=== PATIENT | female | born 1950 | race Caucasian/White ===

== ENCOUNTER → 2020-08-02 10:01 | Outpatient (BNVA) | payer MEDICARE, SELFPAY | PROVIDERS: PCP Internal Medicine; Visit Provider Hospitalist | DX: J45.909 Unspecified asthma, uncomplicated (principal); G47.33 Obstructive sleep apnea (adult) (pediatric); Z79.899 Other long term (current) drug therapy | CPT/HCPCS: 99214 ==

== ENCOUNTER → 2021-02-15 09:17 | Outpatient (BNVA) | payer MEDICARE, SELFPAY | PROVIDERS: PCP Internal Medicine; Visit Provider Hospitalist | DX: J45.40 Moderate persistent asthma, uncomplicated (principal); J31.0 Chronic rhinitis; K21.9 Gastro-esophageal reflux disease without esophagitis | CPT/HCPCS: 99212 ==

== ENCOUNTER 2021-03-10 07:12 | Day surgery (SDC) | payer MEDICARE, SELFPAY ==
--- NOTE | 2021-03-08 12:16 | HO.ANESPROP2 ---
Documented by User: Inga Pearson 03/08/21 12:16 HPI - Anesthesia Eval Consult details Narrative: 70yo F for Colonoscopy PMFSH Active Problems Active Problems: All Active Problems (Updated 03/06/21 @ 13:04 by Haley Wilson) GERD (gastroesophageal reflux disease) (Acute) Chronic rhinitis (Acute) Asthma (Acute) Past Medical History Medical History Asthma Chronic rhinitis GERD (gastroesophageal reflux disease) Hiatal hernia Hypercholesterolemia Surgical History Surgical History History of esophagogastroduodenoscopy (EGD) History of surgery on left wrist Hx of colonoscopy Social History Social History (Updated 02/15/21 @ 09:31 by Jerri Sosa MA) Patient Tobacco Use Status: Former Tobacco user Years Smoked: 10 years Use of substances other than those prescribed or required for medical reasons: No Are you DNR?: No Advance Directives: No Advance Directives Information Provided: Yes Meds Allergies Allergy/AdvReac Type Severity Reaction Status Date / Time Penicillins Allergy Mild Rash Verified 03/10/21 07:28 Home Medications Medication Instructions Recorded Confirmed Last Taken Type atorvastatin 20 mg tablet 20 mg PO DAILY 07/16/20 03/06/21 Unknown History albuterol sulfate 90 mcg/actuation 2 puff INHALATION Q6H PRN 08/02/20 03/06/21 Unknown History aerosol inhaler ascorbic acid (vitamin C) [Vitamin 500 mg PO DAILY 03/06/21 03/06/21 Unknown History C] cholecalciferol (vitamin D3) 25 mcg PO DAILY 03/06/21 03/06/21 Unknown History [Vitamin D3] docusate sodium 100 mg PO BID 03/06/21 03/06/21 Unknown History fluticasone propionate 1 spray INTRANASAL BID 03/06/21 03/06/21 03/10/21 06:15 History Exam Exam Date and Time: March 08, 2021 1216 Assessment and Plan Assessment Anesthesia Assessment: Chart Reviewed Documented by User: Elisabeth Anti 03/10/21 08:38 PMFSH Past Medical History Medical History Asthma Chronic rhinitis GERD (gastroesophageal reflux disease) Hiatal hernia Hypercholesterolemia Surgical History Surgical History History of esophagogastroduodenoscopy (EGD) History of surgery on left wrist Hx of colonoscopy Social History Social History (Updated 02/15/21 @ 09:31 by Jerri Sosa MA) Patient Tobacco Use Status: Former Tobacco user Years Smoked: 10 years Use of substances other than those prescribed or required for medical reasons: No Are you DNR?: No Advance Directives: No Advance Directives Information Provided: Yes Meds Allergies Allergy/AdvReac Type Severity Reaction Status Date / Time Penicillins Allergy Mild Rash Verified 03/10/21 07:28 Home Medications Medication Instructions Recorded Confirmed Last Taken Type atorvastatin 20 mg tablet 20 mg PO DAILY 07/16/20 03/06/21 Unknown History albuterol sulfate 90 mcg/actuation 2 puff INHALATION Q6H PRN 08/02/20 03/06/21 Unknown History aerosol inhaler ascorbic acid (vitamin C) [Vitamin 500 mg PO DAILY 03/06/21 03/06/21 Unknown History C] cholecalciferol (vitamin D3) 25 mcg PO DAILY 03/06/21 03/06/21 Unknown History [Vitamin D3] docusate sodium 100 mg PO BID 03/06/21 03/06/21 Unknown History fluticasone propionate 1 spray INTRANASAL BID 03/06/21 03/06/21 03/10/21 06:15 History Exam Airway Mallampati Class: II TM Dist: >3cm Neck ROM: Full Loose/Missing/Broken Teeth: No Heart: RRR Lungs: CTA Assessment and Plan Assessment Anesthesia Assessment: Anesthesia Plan Discussed and Chart Reviewed Final Anesthetic Review NPO: Yes ASA Class: II Final Preanesthetic Review: Meds/Allgs Chart Reviewed, Consent Obtained/Reviewed and Anes Risks/Benef Reviewed Patient Risk: Low Procedure Risk: Low Anesthetic Plan Anesthetic Plan: MAC: Disposition: Standard PACU
[2021-03-10 06:18] VITALS: BMI 33.3
[2021-03-10 07:38] VITALS: BP 134/77; PULSE 73; RESP 18; TEMP 36.9; O2SAT 98
[2021-03-10] MEDS: Lactated Ringers 1,000 ML 100 ML IVCONT (07:51)
[2021-03-10 09:18] VITALS: BP 111/74; PULSE 70; RESP 18; TEMP 36.2; O2SAT 98
--- NOTE | 2021-03-10 09:21 | PM.OP ---
Brief Operative Note Date of Service: 03/10/21 Pre-op diagnosis: Screening Post-op diagnosis: other (Diverticulosis) Procedure: Colonoscopy to the cecum Surgeon: Catalino Jiménez Anesthesia: MAC Was an Environment Coordinator used for this Procedure?: No Estimated blood loss (mL): 0 Pathology: none sent Condition: stable Disposition: PACU
[2021-03-10 09:33] VITALS: BP 130/62; PULSE 58; RESP 16; TEMP 36.2; O2SAT 98
--- NOTE | 2021-03-10 11:11 | OP_ITS ---
SURGEON: Catalino Jiménez MD INDICATIONS: The patient presents for evaluation of colorectal cancer screening. Full consent has been obtained from her for this, including risks of bleeding and perforation. PREOPERATIVE DIAGNOSIS: Colorectal cancer screening. POSTOPERATIVE DIAGNOSIS: PROCEDURE PERFORMED: Colonoscopy to the cecum. ESTIMATED BLOOD LOSS: COMPLICATIONS: ANESTHESIA: Monitored anesthesia care. ASSISTANTS: SPECIMENS: POSTOPERATIVE DIAGNOSES: Colorectal cancer screening, sigmoid diverticulosis, and internal hemorrhoids. DESCRIPTION OF PROCEDURE: The patient was placed in the left lateral decubitus position. The digital rectal exam revealed no abnormalities. The Olympus video pediatric colonoscope was entered into the rectum and advanced easily to the cecum. Once in the cecum, I did identify normal-appearing cecal pouch with appendiceal orifice and a normal-appearing ileocecal valve. The entire cecum was well visualized and appeared normal. There was transillumination of light deep in the right lower quadrant. The scope was slowly withdrawn assessing all mucosal surfaces carefully. Preparation was excellent. I did not visualize any sign of polyps, colitis, nor angiodysplasias. There was a moderate amount of sigmoid diverticulosis. In the rectum, scope was retroflexed visualizing small internal hemorrhoids, but no other pathology. The rectal mucosa appeared normal. The scope was straightened out and withdrawn from the patient. She tolerated the procedure well and was returned to the recovery area in stable condition. IMPRESSION: 1. Sigmoid diverticulosis. 2. Internal hemorrhoids. PLAN: Given today's negative exam, negative family history of colon cancer, and a negative colonoscopy in 2009, I do not think she will need any further screening colonoscopies at this point since she would be 80-year-old at the time of the next screening colonoscopy. As such, she will see me on a p.r.n. basis. MD RAMA Gonzalez/COLIN / [id number]
== END 2021-03-10 09:53 | disposition home or self-care (01) ==
PROVIDERS: PCP Internal Medicine; Visit Provider Internal Medicine
PROC: 0DJD8ZZ Inspection of Lower Intestinal Tract, Via Natural or Artificial Opening Endoscopic (ICD-10-PCS; CPT 45378; principal; 2021-03-10 08:20)
DX: Z12.11 Encounter for screening for malignant neoplasm of colon (principal); K57.30 Diverticulosis of large intestine without perforation or abscess without bleeding; K64.8 Other hemorrhoids; K21.9 Gastro-esophageal reflux disease without esophagitis; J45.909 Unspecified asthma, uncomplicated; E78.00 Pure hypercholesterolemia, unspecified; Z79.899 Other long term (current) drug therapy; Z79.51 Long term (current) use of inhaled steroids; Z88.0 Allergy status to penicillin; Z87.891 Personal history of nicotine dependence
CPT/HCPCS: G0121

== ENCOUNTER 2021-08-01 09:59 | Outpatient (REF) | payer MEDICARE, SELFPAY ==
--- NOTE | 2021-08-01 17:43 | PFT_ITS ---
INDICATION: COPD. SPIROMETRY: The FEV1 to FVC of 74% with an FEV1 of 1.92 L, which is 82% predicted, FVC of 2.58 L, which is 82% predicted. No significant response to bronchodilators noted. Of note, there is some evidence of small airways disease. Maximum voluntary ventilation 107% predicted. LUNG VOLUMES: Total lung capacity 97% predicted with an expiratory reserve volume of 35% predicted, likely secondary to an elevated BMI. DIFFUSION CAPACITY: DLCO 72% predicted. COMPARISON: None available. INTERPRETATION: No definitive obstructive nor restrictive ventilatory defects identified. No significant response to bronchodilators noted. Again, there is evidence of small airways disease consistent with the diagnosis of asthma. The patient has normal lung volumes except for decrease in the expiratory reserve volume secondary to an elevated BMI. There is also mild diffusion impairment. Clinical correlation warranted. MD CHARISMA Echeverria/MODL / [id number]
== END 2021-08-01 10:00 | disposition home or self-care (01) ==
LOC: HO.RESP 09:59
PROVIDERS: PCP Internal Medicine; Visit Provider Hospitalist
DX: J31.0 Chronic rhinitis (principal); J45.40 Moderate persistent asthma, uncomplicated
CPT/HCPCS: 94060; 94727; 94729

== ENCOUNTER → 2021-08-17 09:22 | Outpatient (BNVA) | payer MEDICARE, SELFPAY | PROVIDERS: PCP Internal Medicine; Visit Provider Hospitalist | DX: J45.40 Moderate persistent asthma, uncomplicated (principal); J31.0 Chronic rhinitis; K21.9 Gastro-esophageal reflux disease without esophagitis | CPT/HCPCS: 99212 ==

== ENCOUNTER → 2022-02-14 09:56 | Outpatient (BNVA) | payer MEDICARE, SELFPAY | PROVIDERS: PCP Internal Medicine; Visit Provider Hospitalist | DX: J45.40 Moderate persistent asthma, uncomplicated (principal); J31.0 Chronic rhinitis; K21.9 Gastro-esophageal reflux disease without esophagitis | CPT/HCPCS: 99212 ==

== ENCOUNTER 2023-02-12 11:13 | Outpatient (REF) | payer MEDICARE, SELFPAY ==
--- NOTE | ~2023-02-12 | XR_ITS ---
EXAMINATION: XR CHEST CLINICAL INFORMATION: Asthma COMPARISON: None available. TECHNIQUE: 2 views of the chest were obtained. FINDINGS: The cardiac and mediastinal contours are normal. The lungs are clear. No pleural effusion or pneumothorax. Degenerative changes of the spine. Old T12 compression fracture. XR/XR chest 2V IMPRESSION: No evidence for acute disease in the chest.
== END 2023-02-12 11:14 | disposition home or self-care (01) ==
LOC: HO.XRAY 11:13
PROVIDERS: PCP Internal Medicine; Visit Provider Hospitalist
DX: J45.40 Moderate persistent asthma, uncomplicated (principal)
CPT/HCPCS: 71046

== ENCOUNTER → 2023-03-06 09:03 | Outpatient (BNVA) | payer MEDICARE, SELFPAY | PROVIDERS: PCP Internal Medicine; Visit Provider Hospitalist | DX: J45.40 Moderate persistent asthma, uncomplicated (principal); J31.0 Chronic rhinitis; J01.20 Acute ethmoidal sinusitis, unspecified; K21.9 Gastro-esophageal reflux disease without esophagitis | CPT/HCPCS: 99212 ==

== ENCOUNTER 2024-01-20 11:11 | Outpatient (AMB) | payer MEDICARE, SELFPAY ==
[2024-01-20 11:17] VITALS: PULSE 79; O2SAT 95; BMI 33.3
--- NOTE | 2024-01-20 11:17 | MHC.OFFVIS ---
Intake Vital Signs 01/20/24 11:17 Height 5 ft 5 in Weight 200 lb BMI 33.3 Pulse 79 Pulse Source Pulse Oximeter Pulse Oximetry (%) 95 Oxygen Delivery Method Room Air Intake Visit Reasons: Obstructive sleep apnea Probation Manager Required: No Allergies Penicillins Allergy (Mild, Verified 01/20/24 11:18) Rash HPI HPI Comments History of Present Illness Details The patient is a 73 y/o woman with COPD, chronic rhinitis and a hiatal hernia. Since we last spoke the patient said worsening nasal congestion and cough. She went down to [place] and she had worsening symptoms when she came back she was seen in the pulmonary office. She was initially had was placed a inhaler Flovent and subsequently increased to try allergy because of significant wheezing and rhonchi. She was also placed on course of antibiotics 2nd time around. She had a chest x-ray that was normal. She had a nasal swab was negative for any influenza or any other respiratory viruses. Her sputum culture was also negative. We also reviewed her pulmonary function studies demonstrating a mild obstruction of the airways. She did respond well to the inhalers. She is going to continue using the Flovent and also her ProAir. Her nose is better. She has been rinsing off and on. She needs to go back on the Flonase as well. We did review her allergy laboratory data and appears to be all negative. She does have mild obstruction based on her PFTs. And her x-ray from [facility] appeared to be normal. No further imaging studies at this time. 02/15/2021 The patient is here for pulmonary follow-up visit. For the last few weeks she has been describing increasing cough and also chest tightness. Rdaz-[id number]-nxyuwlon severity. She has had to use her rescue inhaler, but typically just once or twice a week. She has been using Flovent daily. She also feels like she has a postnasal drip. She had to stop the Astelin because she did not like the taste, but, she recently restarted Flonase. She did have blood work back in August including allergy testing. However, the allergy testing was never done at the laboratory she went to. Her IgE level her eosinophil level were indeed normal which is reassuring. At this point the patient will increase her Flovent and also will use her short-acting beta agonist more regularly in the morning. If the patient needs more medication that will see about changing her long-acting maintenance inhaler. Patient will return in 6 months with PFTs and blood work. 08/17/2021 the patient is here for a pulmonary follow-up visit. She continues to have dyspnea on exertion roag-mi-meutsado severity. Primarily when she is going up a hill or flight of stairs. She has been using her Flovent. She also has a rescue inhaler that she uses as needed when she gets short of breath. She did undergo pulmonary function studies today and we personally reviewed. It appears that she does have an obstructive physiology with small airways disease more suspicions for asthma. No definitive COPD appreciated. At this point the patient would benefit from a long-acting beta agonist. Therefore give her a sample that she can try a to replace the Flovent. If she feels more effective than will go ahead and send a prescription to the pharmacy. I did send a Trelegy although a combination inhaler will be sufficient. 02/14/2022 the patient is here for a pulmonary follow-up visit. The patient has been doing better on the maintenance therapy. She is not as winded. She still has a rescue inhaler that she uses seldomly. She also has intermittent cough. The patient continues to have some reflux symptoms. We did talk about the reflux diet making sure she has small meals and avoiding things that trigger her reflux. She understands that reflux is 1 of the precipitators of asthma. 03/06/2023 the patient is here for a pulmonary follow-up visit. The patient is doing well from an asthma standpoint. She does have her Symbicort inhaler that she uses at times. She had a chest x-ray without acute disease. The patient also has been having issues with her sinuses. Sinus headaches and pressure. If she has tried multiple [id number]-yysnojw medication without any significant improvement. She has not responded to allergy medicine. She has scheduled a sinus CT scan. In the meantime we talked about after the CT scan she has start Afrin for 5 days. She can also start prednisone. This will help decrease the inflammation of the sinuses on all her to provide some drainage. If the patient does improved but she still needs additional therapy she can consider Sudafed. She does not have a history of blood pressure. I did recommend she start the therapy after she gets her CT scan to make sure that we do mask any findings on the CT scan. 01/20/2024 the patient is here for a pulmonary follow-up visit. Overall the patient has been doing well. She wants ago she was concerned about potential oral candidiasis. Patient did call the office and we did send her antifungal medication to her local pharmacy in [place]. She was unsure if she did have a fungal infection but the symptoms did subside. She had been on Symbicort. However, her insurance no longer covered so she was switched over to Dulera. She seems to be tolerating the Dulera and she actually feels like is working better than the Symbicort. She recently moved back to [place] after being in [place] for the last several months. Initially the transition was okay but then she started developing some nasal congestion and some chest tightness. She has been using the Dulera twice a day when she usually just uses it once a day. She also has use her rescue medication nebulizer with some improvement. Right now her respiratory exam is really unremarkable. No significant wheezing. I do not believe that she needs any prednisone or antibiotics. The patient should continue with current therapy. However, if her symptoms worsen she can always call will consider additional medications the pharmacy. [facility] Medical History (Updated 03/06/23 @ 22:26 by Ron Urrutia MD) Hiatal hernia Hypercholesterolemia GERD (gastroesophageal reflux disease) Chronic rhinitis Asthma Surgical History Hx of colonoscopy History of esophagogastroduodenoscopy (EGD) History of surgery on left wrist Social History (Updated 02/14/22 @ 10:12 by BRENDAN Moreno) Patient Tobacco Use Status: Former Tobacco user Tobacco use type: Cigarette Years Smoked: 10 years Review of Systems Const Denies night sweats ENT Denies change in voice, Denies lip swelling, Denies mouth pain, Reports nasal congestion, Denies nasal discharge, Denies post nasal drip, Reports sinus pain, Reports sinus pressure and Denies tongue swelling Card Denies chest pain and Reports dyspnea Resp Reports cough, Reports dyspnea and Reports wheezing GI Denies abdominal pain and Reports heartburn Musc Denies no additional complaints Neuro Denies Neuro-related abnormal movements Psych Denies no additional complaints Manolo/Lymph Denies easy bleeding and Denies lymphadenopathy Aller/Immun Denies lip swelling, Denies tongue swelling and Reports wheezing Physical Exam Vital Signs: Last Vital Signs Pulse 79 01/20/24 11:17 Pulse Ox 95 01/20/24 11:17 Oxygen Delivery Method Room Air 01/20/24 11:17 BMI result Body Mass Index 33.3 Const General: alert HEENT General nose exam: Abnormal mucous membranes and turbinates present erythematous and no nasal discharge noted Neck Neck: Yes normal visual inspection, Yes full ROM and Yes no lymphadenopathy Chest Chest palpation & inspection: normal inspection of the chest Resp Auscultation: no wheezes and diminished lung sounds Cardio Rate: regular rate Rhythm: regular rhythm Heart sounds: S1 normal heart sound present and S2 normal heart sound present GI Palpation (GI): Soft to palpation and nontender Auscultation: normal bowel sounds Skin General skin exam: rashes and/or lesions noted Assessment & Plan Assessment & Plan (1) Asthma: Code(s): J45.909 - Unspecified asthma, uncomplicated Qualifiers: Asthma complication type: uncomplicated Asthma persistence: persistent Asthma severity: moderate Qualified Code(s): J45.40 - Moderate persistent asthma, uncomplicated (2) Chronic rhinitis: Code(s): J31.0 - Chronic rhinitis (3) GERD (gastroesophageal reflux disease): Code(s): K21.9 - Gastro-esophageal reflux disease without esophagitis Qualifiers: Esophagitis presence: without esophagitis Qualified Code(s): K21.9 - Gastro-esophageal reflux disease without esophagitis (4) Sinusitis: Code(s): J32.9 - Chronic sinusitis, unspecified Qualifiers: Chronicity: subacute Sinusitis location: ethmoidal Qualified Code(s): J01.20 - Acute ethmoidal sinusitis, unspecified Plan continue Dulera Short-acting beta agonist in the morning and as needed hold Flonase Astelin nasal cause bad taste and did not tolerate Continue singular Add zyrtec in AM Nasal rinsing BID Continue omeprazole and reflux diet consider pseudophed Follow-up in 12 months Coding Level of Care Code Est Pt Level 4 (24347) Diagnoses Moderate persistent asthma without complication J45.40 Asthma complication type: uncomplicated Asthma persistence: persistent Asthma severity: moderate Chronic rhinitis J31.0 Gastroesophageal reflux disease without esophagitis K21.9 Esophagitis presence: without esophagitis Subacute ethmoidal sinusitis J01.20 Chronicity: subacute Sinusitis location: ethmoidal Time Spent (min) 17
== END 2024-01-20 11:46 | disposition home or self-care (01) ==
PROVIDERS: PCP Internal Medicine; Visit Provider Hospitalist
DX: J45.40 Moderate persistent asthma, uncomplicated (principal); J31.0 Chronic rhinitis; K21.9 Gastro-esophageal reflux disease without esophagitis; J01.20 Acute ethmoidal sinusitis, unspecified
CPT/HCPCS: 99214

== ENCOUNTER → 2024-01-20 11:11 | Outpatient (BNVA) | payer MEDICARE, SELFPAY | PROVIDERS: PCP Internal Medicine; Visit Provider Hospitalist | DX: J45.40 Moderate persistent asthma, uncomplicated (principal); J31.0 Chronic rhinitis; J01.20 Acute ethmoidal sinusitis, unspecified; K21.9 Gastro-esophageal reflux disease without esophagitis | CPT/HCPCS: 99212 ==

== ENCOUNTER 2025-01-22 10:47 | Outpatient (AMB) | payer MEDICARE, SELFPAY ==
--- NOTE | 2025-01-22 10:53 | A.OFFVIS_ITS ---
Vital Signs 01/22/25 10:55 Height 5 ft 5 in Weight 176 lb 5.917 oz BMI 29.3 BP 110/62 Blood Pressure Location Rt brachial Position Sitting Pulse 70 Pulse Source Pulse Oximeter Pulse Oximetry (%) 97 Oxygen Delivery Method Room Air Intake Visit Reasons: Asthma Allergies Penicillins Allergy (Mild, Verified 01/22/25 10:58) Rash HPI Comments Details: The patient is a 74 y/o woman with COPD, chronic rhinitis and a hiatal hernia. Since we last spoke the patient said worsening nasal congestion and cough. She went down to [place] and she had worsening symptoms when she came back she was seen in the pulmonary office. She was initially had was placed a inhaler Flovent and subsequently increased to try allergy because of significant wheezing and rhonchi. She was also placed on course of antibiotics 2nd time around. She had a chest x-ray that was normal. She had a nasal swab was negative for any influenza or any other respiratory viruses. Her sputum culture was also negative. We also reviewed her pulmonary function studies demonstrating a mild obstruction of the airways. She did respond well to the inhalers. She is going to continue using the Flovent and also her ProAir. Her nose is better. She has been rinsing off and on. She needs to go back on the Flonase as well. We did review her allergy laboratory data and appears to be all negative. She does have mild obstruction based on her PFTs. And her x-ray from [facility] appeared to be normal. No further imaging studies at this time. 02/15/2021 The patient is here for pulmonary follow-up visit. For the last few weeks she has been describing increasing cough and also chest tightness. Yzvc-uh-omdkaywk severity. She has had to use her rescue inhaler, but typically just once or twice a week. She has been using Flovent daily. She also feels like she has a postnasal drip. She had to stop the Astelin because she did not like the taste, but, she recently restarted Flonase. She did have blood work back in August including allergy testing. However, the allergy testing was never done at the laboratory she went to. Her IgE level her eosinophil level were indeed normal which is reassuring. At this point the patient will increase her Flovent and also will use her short-acting beta agonist more regularly in the morning. If the patient needs more medication that will see about changing her long-acting maintenance inhaler. Patient will return in 6 months with PFTs and blood work. 08/17/2021 the patient is here for a pulmonary follow-up visit. She continues to have dyspnea on exertion rqcr-nl-rtfriues severity. Primarily when she is going up a hill or flight of stairs. She has been using her Flovent. She also has a rescue inhaler that she uses as needed when she gets short of breath. She did undergo pulmonary function studies today and we personally reviewed. It appears that she does have an obstructive physiology with small airways disease more suspicions for asthma. No definitive COPD appreciated. At this point the patient would benefit from a long-acting beta agonist. Therefore give her a sample that she can try a to replace the Flovent. If she feels more effective than will go ahead and send a prescription to the pharmacy. I did send a Trelegy although a combination inhaler will be sufficient. 02/14/2022 the patient is here for a pulmonary follow-up visit. The patient has been doing better on the maintenance therapy. She is not as winded. She still has a rescue inhaler that she uses seldomly. She also has intermittent cough. The patient continues to have some reflux symptoms. We did talk about the reflux diet making sure she has small meals and avoiding things that trigger her reflux. She understands that reflux is 1 of the precipitators of asthma. 03/06/2023 the patient is here for a pulmonary follow-up visit. The patient is doing well from an asthma standpoint. She does have her Symbicort inhaler that she uses at times. She had a chest x-ray without acute disease. The patient also has been having issues with her sinuses. Sinus headaches and pressure. If she has tried multiple ubnd-kea-dvtuinc medication without any significant improvement. She has not responded to allergy medicine. She has scheduled a sinus CT scan. In the meantime we talked about after the CT scan she has start Afrin for 5 days. She can also start prednisone. This will help decrease the inflammation of the sinuses on all her to provide some drainage. If the patient does improved but she still needs additional therapy she can consider Sudafed. She does not have a history of blood pressure. I did recommend she start the therapy after she gets her CT scan to make sure that we do mask any findings on the CT scan. 01/20/2024 the patient is here for a pulmonary follow-up visit. Overall the patient has been doing well. She wants ago she was concerned about potential oral candidiasis. Patient did call the office and we did send her antifungal medication to her local pharmacy in [place]. She was unsure if she did have a fungal infection but the symptoms did subside. She had been on Symbicort. However, her insurance no longer covered so she was switched over to Dulera. She seems to be tolerating the Dulera and she actually feels like is working better than the Symbicort. She recently moved back to [place] after being in [place] for the last several months. Initially the transition was okay but then she started developing some nasal congestion and some chest tightness. She has been using the Dulera twice a day when she usually just uses it once a day. She also has use her rescue medication nebulizer with some improvement. Right now her respiratory exam is really unremarkable. No significant wheezing. I do not believe that she needs any prednisone or antibiotics. The patient should continue with current therapy. However, if her symptoms worsen she can always call will consider additional medications the pharmacy. 01/22/2025 the patient is here for a pulmonary follow-up visit. Overall the patient is doing well. Denies any worsening respiratory symptoms. She had been taking the Zyrtec now in springtime does help her with her transition to the spring. And helps with sinus headaches. She continues on the Dulera which she takes with good effect. And she has not required her rescue inhaler. She does sleep well. She does not have any issues with sleep apnea. We have to take that out of her chief complaint. No recent imaging studies to review. We did review a chest x-ray she had back in demonstrating an old compression fracture like from an accident. The patient is otherwise doing well she will continue with the current respiratory therapy in her allergy therapy and follow- up in a year's time. If she develops any worsening symptoms prior to that she will call for an earlier assessment. [facility] Medical History (Updated 03/06/23 @ 22:26 by Ron Urrutia MD) Hiatal hernia Hypercholesterolemia GERD (gastroesophageal reflux disease) Chronic rhinitis Asthma Surgical History Hx of colonoscopy History of esophagogastroduodenoscopy (EGD) History of surgery on left wrist Social History Patient Tobacco Use Status: Former Tobacco user Tobacco use type: Cigarette Years Smoked: 10 years Review of Systems Const Denies night sweats ENT Denies change in voice, Denies lip swelling, Denies mouth pain, Reports nasal congestion, Denies nasal discharge, Denies post nasal drip, Reports sinus pain, Reports sinus pressure and Denies tongue swelling Card Denies chest pain and Reports dyspnea Resp Reports cough, Reports dyspnea and Reports wheezing GI Denies abdominal pain and Reports heartburn Musc Denies no additional complaints Neuro Denies Neuro-related abnormal movements Psych Denies no additional complaints Manolo/Lymph Denies easy bleeding and Denies lymphadenopathy Aller/Immun Denies lip swelling, Denies tongue swelling and Reports wheezing Physical Exam Vital Signs: Last Vital Signs Pulse 70 01/22/25 10:55 BP 110/62 01/22/25 10:55 Pulse Ox 97 01/22/25 10:55 Oxygen Delivery Method Room Air 01/22/25 10:55 BMI result Body Mass Index 29.3 Const General: alert HEENT General nose exam: Abnormal mucous membranes and turbinates present erythematous and no nasal discharge noted Neck Neck: Yes normal visual inspection, Yes full ROM and Yes no lymphadenopathy Chest Chest palpation & inspection: normal inspection of the chest Resp Auscultation: no wheezes and diminished lung sounds Cardio Rate: regular rate Rhythm: regular rhythm Heart sounds: S1 normal heart sound present and S2 normal heart sound present GI Palpation (GI): Soft to palpation and nontender Auscultation: normal bowel sounds Skin General skin exam: rashes and/or lesions noted Assessment & Plan Assessment & Plan (1) Asthma: Code(s): J45.909 - Unspecified asthma, uncomplicated Category: Medical Qualifiers: Asthma complication type: uncomplicated Asthma persistence: persistent Asthma severity: moderate Qualified Code(s): J45.40 - Moderate persistent asthma, uncomplicated (2) Chronic rhinitis: Code(s): J31.0 - Chronic rhinitis Category: Medical (3) GERD (gastroesophageal reflux disease): Code(s): K21.9 - Gastro-esophageal reflux disease without esophagitis Category: Medical Qualifiers: Esophagitis presence: without esophagitis Qualified Code(s): K21.9 - Gastro-esophageal reflux disease without esophagitis (4) Sinusitis: Code(s): J32.9 - Chronic sinusitis, unspecified Category: Medical Qualifiers: Chronicity: subacute Sinusitis location: ethmoidal Qualified Code(s): J01.20 - Acute ethmoidal sinusitis, unspecified Plan continue Dulera Short-acting beta agonist in the morning and as needed hold Flonase Astelin nasal cause bad taste and did not tolerate Continue singular zyrtec in AM Nasal rinsing BID Continue omeprazole and reflux diet consider pseudophed Follow-up in 12 months Coding Level of Care Code Est Pt Level 4 (37182) Diagnoses Moderate persistent asthma without complication J45.40 Asthma complication type: uncomplicated Asthma persistence: persistent Asthma severity: moderate Chronic rhinitis J31.0 Gastroesophageal reflux disease without esophagitis K21.9 Esophagitis presence: without esophagitis Subacute ethmoidal sinusitis J01.20 Chronicity: subacute Sinusitis location: ethmoidal Time Spent (min) 16
[2025-01-22 10:55] VITALS: BP 110/62; PULSE 70; O2SAT 97; BMI 29.3
--- OUTSIDE RECORDS SUMMARY | 2025-01-22 11:40 | XMS_ITS | Patient Health Record ---
Author Organization [facility] Address [address] [place] [id number] Care Team Providers Care Fingernail Sculptor Name Role Phone RIYA JEAN Primary Care Provider Catalino Greenwood [phone] Allergies Allergen (clinical drug ingredient) Drug/Non Drug Allergy documented on EMR Reaction Allergy Type Onset Date Status Penicillin Unknown Drug Allergy Active Reason For Referral No Information Medications Medication SIG (Take, Route, Frequency, Duration) Notes Start Date End Date Status Omeprazole 20 MG TAKE 1 CAPSULE BY MOUTH EVERY DAY Oral for 30 Started in 05/2018 Active Fluticasone Propionate Active Flovent Diskus Activ e ProAir HFA Active Fiber Choice Active Montelukast Sodium 10 MG Orally Active Docusate Sodium 100 MG 2 capsule as need ed Orally Once a day Active Vitamin C 500 MG 1 tablet Orally Once a day Active Vitamin D3 1000 UNIT 1 tablet Orally Onc e a day Active Atorvastatin Calcium 20 MG 1 tablet Orally Once a day Active Immunizations Vaccine Route Administration Date Status Comme nts Influenza Unknown 07/14/2018 Administered Influenza Unknown 08/02/2020 Administered Social History Tobacco Use: Social History Observation Description Date Details (start date - stop date) Never Smoker NA - NA Tobacco Use/Smoking Question Answer Notes Patient is a nonsmoker Alcohol Screen Question Answer Notes Did you have a drink contain ing alcohol in the past year? Yes How often did you have a dri nk containing alcohol in the past year? 2 to 3 times a week (3 points) How many drinks did you have on a typical day when you were drinking in the past year? 1 or 2 drinks (0 point) Points 3 Interpretation Positive Section Notes: Nonsmoker; no sig alcohol Nonsmoker; no sig alcohol Problems Problem Type SNOMED Code ICD Code Onset Dates Problem Status W/U Status Risk Notes Problem 961077898 Encounter for screening for malignant neoplasm of colon (Z12.11) Active confirmed Problem 752687117 Gastroesophageal reflux disease without esophagitis (K21.9) Active confirmed Problem [id number] Preprocedural examination (Z01.818) Active confirmed Problem 867352955 Gastroesophageal reflux disease, esophagitis presence not specified (K21.9) Active confirmed Problem 19548326 Hiatal hernia (K44.9) Active confirmed Problem 66268706 Constipation, unspecified constipation type (K59.00) Active confirmed Plan Of Treatment Future Test Test Name Order Date UPPER GI ENDOSCOPY 08/26/2018 COLONOSCOPY 02/16/2021 Insurance Providers Payer Name Payer Address Payer Phone Subscriber Number Group Number Insured Name Patient Relationship to Insured Coverage Start Date Coverage End Date [facility] [address] [place], [place] [id number] BESSIE LUO Self - patient is the insured Medical (General) History Medical History History ICD Code Bronchitis/asthma/COPD--sees Dr. Ba forman Denies NV,DM,CVA,renal disease Hypercholesterolemia Neg. colonoscopy in 04/2010 e xcept for an inflammatory polyp, diverticulosis, and internal hemorrhoids. She also had a negative colonoscopy prior to that. GERD--hiatal hernia seen on UGI in 03/2018--EGD in 09/2018-with a small HH and no Teague's, no esophagitis Surgical History Surgery Date(Month/Year) Left wrist 12/2017
== END 2025-01-22 11:22 | disposition home or self-care (01) ==
LOC: HO.HPS 10:47
PROVIDERS: PCP Internal Medicine; Visit Provider Hospitalist
DX: J45.40 Moderate persistent asthma, uncomplicated (principal); J31.0 Chronic rhinitis; K21.9 Gastro-esophageal reflux disease without esophagitis; J01.20 Acute ethmoidal sinusitis, unspecified
CPT/HCPCS: 99214

== ENCOUNTER → 2025-01-22 10:47 | Outpatient (BNVA) | payer MEDICARE, SELFPAY | PROVIDERS: PCP Internal Medicine; Visit Provider Hospitalist | DX: J44.9 Chronic obstructive pulmonary disease, unspecified (principal); J45.40 Moderate persistent asthma, uncomplicated; J31.0 Chronic rhinitis; J01.20 Acute ethmoidal sinusitis, unspecified; K21.9 Gastro-esophageal reflux disease without esophagitis | CPT/HCPCS: 99212 ==